=== PATIENT | male | born 1980 | race Caucasian/White ===

== ENCOUNTER 2019-08-12 08:58 | Day surgery (SDC) | payer OTHER ==
[~2019-08-12 08:58] MED LIST: Dexamethasone 4 MG/ML 5 ML MDV ONE; HYDROmorphone 0.5 MG/0.5 ML Syringe ONE; Ketorolac 30 MG/ML SDV ONE; Lactated Ringers 0 ML ONE; Lactated Ringers 1,000 ML IV SCH; Lactated Ringers 1,000 ML ONE; Lidocaine 1% 6 ML ONE; Lidocaine 1%/Sod Bicarbonate in NS 8.4% 1 ML Syringe IDERM PRN; Midazolam 1 MG/ML 2 ML SDV ONE; Ondansetron 4 MG/2 ML SDV ONE; Phenylephrine/Normal Saline 100 MCG/ML 10 ML Syringe ONE; Propofol 200 MG/20 ML SDV ONE; Sodium Chloride 0.9% 10 ML Syringe FLUSH PRN; ceFAZolin 1 GM Vial ONE; fentaNYL 250 MCG/5 ML SDV ONE
[2019-08-12] MEDS ORDERED: Bupivacaine 0.25% 10 ML SDV ONE (09:03)
--- NOTE | 2019-08-12 09:55 | PCM.PREANE ---
Preanesthetic Assessment - Procedure Proposed Procedure: right knee prepatellar bursectomy - Anesthesia/Transfusion/Family Hx Anesthesia History: Prior Anesthesia Without Reaction Family History of Anesthesia Reaction: No Transfusion History: No Prior Transfusion(s) - Review of Systems General: No Symptoms Pulmonary: No Symptoms Cardiovascular: No Symptoms Gastrointestinal: Nausea (empty stomach) Neurological: No Symptoms Other: Reports: None - Physical Assessment NPO Status Date: 08/11/19 NPO Status Time: 20:00 Vital Signs: Last Vital Signs Temp 37.0 C 08/12/19 09:05 Pulse 84 08/12/19 09:05 Resp 16 08/12/19 09:05 BP 121/86 08/12/19 09:05 Pulse Ox 96 08/12/19 09:05 Height: 1.83 m Weight: 108.862 kg ASA Class: 2 Mental Status: Alert & Oriented x3 Airway Class: Mallampati = 1 Dentition: Reports: Normal Dentition Thyro-Mental Finger Breadths: 3 Mouth Opening Finger Breadths: 3 ROM/Head Extension: Full Lungs: Clear to Auscultation, Normal Respiratory Effort Cardiovascular: Regular Rate, Regular Rhythm - Lab Values: Laboratory Last Values MRSA (PCR) Negative 08/09/19 11:29 - Allergies Allergies/Adverse Reactions: Allergies Allergy/AdvReac Type Severity Reaction Status Date / Time No Known Allergies Allergy Verified 08/11/19 12:45 - Blood Blood Available: No Product(s) Available: None - Anesthesia Plan Pre-Op Medication Ordered: None - Acknowledgements Anesthesia Type Planned: General Anesthesia Pt an Appropriate Candidate for the Planned Anesthesia: Yes Alternatives and Risks of Anesthesia Discussed w Pt/Guardian: Yes Pt/Guardian Understands and Agrees with Anesthesia Plan: Yes PreAnesthesia Questionnaire HEENT History: Reports: Allergic Rhinitis Cardiovascular History: Reports: None Respiratory History: Reports: None Gastrointestinal History: Reports: None, GERD Genitourinary History: Reports: None 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 Musculoskeletal History: Reports: Back Pain, Chronic, Other (See Below) Other Musculoskeletal History: RIGHT KNEE BURSITIS, CHONDROMALACHIA, LEFT KNEE ARTHROSCOPY Neurological History: Reports: None Psychiatric History: Reports: None Endocrine/Metabolic History: Reports: None Hematologic History: Reports: None Immunologic History: Reports: None Oncologic (Cancer) History: Reports: None Dermatologic History: Reports: Cellulitis - Past Surgical History Head Surgeries/Procedures: Reports: None HEENT Surgical History: Reports: None Cardiovascular Surgical History: Reports: None Respiratory Surgical History: Reports: None GI Surgical History: Reports: None Female Surgical History: Reports: None Male Surgical History: Reports: None Endocrine Surgical History: Reports: None Neurological Surgical History: Reports: None Musculoskeletal Surgical History: Reports: Arthroscopic Knee Oncologic Surgical History: Reports: None Dermatological Surgical History: Reports: None - SUBSTANCE USE Smoking Status *Q: Never Smoker Tobacco Use Within Last Twelve Months: No Second Hand Smoke Exposure: No Days Per Week of Alcohol Use: 0 Number of Drinks Per Day: 0 Total Drinks Per Week: 0 Recreational Drug Use History: No - HOME MEDS Home Medications: Home Meds Doxycycline Hyclate 100 mg PO BID 08/11/19 [History] Acetaminophen [Tylenol Extra Strength] 1 tab PO ASDIRECTED PRN 08/12/19 [History ] Acetaminophen/HYDROcodone [[place] 325-5 MG] 1 tab PO ASDIRECTED PRN 08/12/19 [ History] Aspirin 325 mg PO BID #84 tab 08/12/19 [Rx] Hydrocodone/Acetaminophen [[place] 5-325 Tablet] 1 - 2 tab PO Q6H PRN #30 tablet 08/12/19 [Rx] - CURRENT (IN HOUSE) MEDS Current Meds: Current Medications Lactated Ringer's (Ringers, Lactated) 1,000 mls @ 125 mls/hr IV ASDIRECTED MADHU Stop: 08/12/19 23:00 Last Admin: 08/12/19 09:20 Dose: 125 mls/hr Influenza Virus Vaccine (Pharmacy To Dose - Influenza Vaccine) 0 each IM ONETIME MADHU Stop: 08/12/19 18:00 Influenza Virus Vaccine (Fluzone Quad [id number] Syringe) 60 mcg IM .ONCE ONE Stop: 08/12/19 10:01 Lidocaine/Sodium Bicarbonate (Buffered Lidocaine 1% In Ns 8.4%) 0.25 ml IDERM ONETIME PRN PRN Reason: Prior to IV Start Stop: 08/12/19 18:00 Last Admin: 08/12/19 09:20 Dose: 0.25 ml Sodium Chloride (Saline Flush) 10 ml FLUSH ASDIRECTED PRN PRN Reason: Keep Vein Open Stop: 08/12/19 18:00 Discontinued Medications Bupivacaine HCl (Sensorcaine-Mpf 0.25%) Confirm Administered Dose 20 ml .ROUTE .STK-MED ONE Stop: 08/12/19 09:04 Cefazolin Sodium (Ancef) Confirm Administered Dose 2 gm .ROUTE .STK-MED ONE Stop: 08/12/19 08:47 Dexamethasone (Dexamethasone) Confirm Administered Dose 20 mg .ROUTE .STK-MED ONE Stop: 08/12/19 08:47 Fentanyl (Sublimaze) Confirm Administered Dose 250 mcg .ROUTE .STK-MED ONE Stop: 08/12/19 08:49 Hydromorphone HCl (Dilaudid) Confirm Administered Dose 0.5 mg .ROUTE .STK-MED ONE Stop: 08/12/19 08:47 Lactated Ringer's (Ringers, Lactated) Confirm Administered Dose 1,000 mls @ as directed .ROUTE .STK-MED ONE Stop: 08/12/19 08:45 Lidocaine HCl (Xylocaine-Mpf 1%) Confirm Administered Dose 6 mls @ as directed .ROUTE .STK-MED ONE Stop: 08/12/19 08:47 Lactated Ringer's (Ringers, Lactated) Confirm Administered Dose 1,000 mls @ as directed .ROUTE .STK-MED ONE Stop: 08/12/19 08:47 Ketorolac Tromethamine (Toradol) Confirm Administered Dose 30 mg .ROUTE .STK- MED ONE Stop: 08/12/19 08:47 Midazolam HCl (Versed 1 Mg/Ml) Confirm Administered Dose 2 mg .ROUTE .STK-MED ONE Stop: 08/12/19 08:48 Ondansetron HCl (Zofran) Confirm Administered Dose 4 mg .ROUTE .STK-MED ONE Stop: 08/12/19 08:47 Phenylephrine HCl (Phenylephrine In Ns 100 Mcg/Ml) Confirm Administered Dose 1 mg .ROUTE .STK-MED ONE Stop: 08/12/19 08:47 Propofol (Diprivan 20 Ml) Confirm Administered Dose 200 mg .ROUTE .STK-MED ONE Stop: 08/12/19 08:48
[2019-08-12] MEDS ORDERED: FLU Vacc QS2019-20(6MOS+)/PF 60 MCG/0.5 ML SYRINGE IM ONE (10:00)
[2019-08-12] MEDS ORDERED: Propofol 200 MG/20 ML SDV ONE (10:44)
[2019-08-12] MEDS ORDERED: fentaNYL 100 MCG/2 ML SDV IVPUSH PRN (10:59)
[2019-08-12] MEDS ORDERED: HYDROmorphone 0.5 MG/0.5 ML Syringe IVPUSH PRN (10:59)
[2019-08-12] MEDS ORDERED: Ondansetron 4 MG/2 ML SDV IVPUSH PRN (10:59)
[2019-08-12] MEDS ORDERED: ePHEDrine 50 MG/ML SDV IVPUSH PRN (10:59)
[2019-08-12] MEDS ORDERED: diphenhydrAMINE 50 MG/ML SDV IVPUSH PRN (10:59)
[2019-08-12] MEDS ORDERED: Phenylephrine 1 MG in Sodium Chloride 0.9% 10 ML IV SCH (11:00)
[2019-08-12] MEDS ORDERED: HYDROmorphone 0.5 MG/0.5 ML Syringe ONE ×2 (11:19→11:32)
--- NOTE | 2019-08-12 12:07 | PCM.POSTAN ---
POST ANESTHESIA ASSESSMENT - MENTAL STATUS Mental Status: Alert - VITAL SIGNS Vital Signs: Last Vital Signs Temp 98.4f 08/12/19 1200 Pulse 72 08/12/19 1200 Resp 12 08/12/19 1200 BP 137/88 08/12/19 1200 Pulse Ox 96 08/12/19 1200 - RESPIRATORY Respiratory Status: Respiratory Rate WNL, Airway Patent, O2 Saturation Stable, Supplemental Oxygen - CARDIOVASCULAR CV Status: Pulse Rate WNL, Blood Pressure Stable - GASTROINTESTINAL GI Status: No Symptoms - POST OP HYDRATION Hydration Status: Adequate & Stable
[2019-08-12] MEDS ORDERED: Acetaminophen/HYDROcodone 325-5 MG Tab PO PRN (13:01)
--- NOTE | 2019-08-12 13:01 | PCM48HPAN ---
Post Anesthesia Note - EVALUATION WITHIN 48HRS OF ANESTHETIC Vital Signs in Normal Range: Yes Patient Participated in Evaluation: Yes Respiratory Function Stable: Yes Airway Patent: Yes Cardiovascular Function Stable: Yes Hydration Status Stable: Yes Pain Control Satisfactory: Yes Nausea and Vomiting Control Satisfactory: Yes Mental Status Recovered: Yes Vital Signs: Last Vital Signs Temp 37.4 C 08/12/19 12:45 Pulse 77 08/12/19 12:45 Resp 14 08/12/19 12:45 BP 138/81 08/12/19 12:45 Pulse Ox 94 L 08/12/19 12:45
[2019-08-12] MEDS ORDERED: FLU Vacc QS2019-20(6MOS+)/PF 60 MCG/0.5 ML SYRINGE ONE (13:16)
--- NOTE | 2019-08-17 13:42 | PCM.OPNOTE ---
- General Post-Op/Procedure Note Date of Surgery/Procedure: 08/12/19 Operative Procedure(s): right knee prepatellar bursectomy with wound vac placement Pre Op Diagnosis: right knee septic prepatellar bursitis with ulceration Post-Op Diagnosis: Same Anesthesia Technique: General LMA, MAC Primary Surgeon: Richie Duarte Anesthesia Provider: Debora Villavicencio Literacy Tutor: Samantha Esqueda EBL in mLs: 30 Complications: None Condition: Good
--- NOTE | 2019-08-17 14:51 | OR ---
DATE OF OPERATION: 08/12/2019 SURGEON: Richie Duarte MD OPERATION PERFORMED: Right knee prepatellar bursitis with wound VAC placement. PREOPERATIVE DIAGNOSIS: Right knee perceptive prepatellar bursitis with ulceration. POSTOPERATIVE DIAGNOSIS: Right knee perceptive prepatellar bursitis with ulceration. ANESTHESIA: General LMA with local. ANESTHESIA PROVIDER: Debora Villavicencio CRNA ESTIMATED BLOOD LOSS: 30 mL. COMPLICATIONS: None. CONDITION: Stable. DESCRIPTION OF PROCEDURE: The patient was identified in the preop holding area. Proper site was marked and identified by the surgeon. The patient was taken back to the operating theater where after adequate anesthesia, the patient had a nonsterile tourniquet applied to the right lower extremity. His right lower extremity was then sterilely prepped and draped with Betadine secondary to the open ulceration. At this time, the right lower extremity was elevated and tourniquet was insufflated to 250 mmHg. The ulceration was then probed and was found to be full thickness all the way down to the prepatellar bursa. It measured roughly 3 cm x 3 cm with roughened edges and significant skin sloughing around it. At this time, this was debrided significantly back to good healthy tissue. At this time, a longitudinal incision was made roughly 4 cm over from this, on the medial side, and a prepatellar bursectomy was then carried out. There was noted to be a large amount of scarring in the prepatellar bursal region where it was hard to even tell good tissue from bad and where the fascia and the retinaculum was of the knee. I did debride a significant amount of prepatellar bursa and debulked it significantly and did not enter the knee joint. 4 L of normal saline were irrigated through this once this had been completely debrided back. At this time, it was decided secondary to the ulceration and wound VAC would need to be placed and a wound VAC was applied to the ulceration and to the incision under sterile technique. The wound VAC was then applied to constant continuous pressure. The patient tolerated the procedure well, and this was significantly more difficult than a normal prepatellar bursa secondary to rupturing and the patient having a large ulceration at this time, with a lot more skin debridement than normal as well as the prepatellar bursa debridement was significantly scarred. MMODAL /[id number]
--- NOTE | 2019-08-23 09:14 | OR ---
DATE OF OPERATION: 08/12/2019 SURGEON: Richie Duarte MD ADDENDUM: Please note that measurement of the open area for placement of the wound VAC was roughly 4 cm x 6 cm and a nondurable V.A.C.Via that was only used for 1 week was utilized. MMODAL /[id number]
== END 2019-08-12 14:07 | disposition home or self-care (01) ==
LOC: JD.SDS 08:58
PROVIDERS: ATTEND Orthopaedic Surgery
DX: M70.41 Prepatellar bursitis, right knee (principal); L98.499 Non-pressure chronic ulcer of skin of other sites with unspecified severity; K21.9 Gastro-esophageal reflux disease without esophagitis; Z91.018 Allergy to other foods; Z23 Encounter for immunization; Z79.1 Long term (current) use of non-steroidal anti-inflammatories (NSAID)
CPT/HCPCS: 15002; 27340; 87075; 87077; 87186; 87205; 87641; 90471; 90686; 97607; A9270; J0690; J1100; J1170; J1885; J2001; J2250; J2405; J2704; J3010; J3490; J7120; 01320; G0008; J2370

== ENCOUNTER 2019-11-25 08:53 | Day surgery (SDC) | payer OTHER ==
[~2019-11-25 08:53] MED LIST changes: -HYDROmorphone 0.5 MG/0.5 ML Syringe ONE; -Lactated Ringers 0 ML ONE; -Lidocaine 1% 6 ML ONE; -Phenylephrine/Normal Saline 100 MCG/ML 10 ML Syringe ONE; +fentaNYL 100 MCG/2 ML SDV ONE; -fentaNYL 250 MCG/5 ML SDV ONE
[2019-11-25] MEDS ORDERED: Bupivacaine 0.25% 10 ML SDV ONE (09:12)
--- NOTE | 2019-11-25 09:48 | PCM.PREANE ---
Preanesthetic Assessment - Procedure Proposed Procedure: Excision of Right Knee soft tissue mass - Anesthesia/Transfusion/Family Hx Anesthesia History: Prior Anesthesia Without Reaction Family History of Anesthesia Reaction: No Transfusion History: No Prior Transfusion(s) - Review of Systems General: No Symptoms Pulmonary: No Symptoms Cardiovascular: Palpitations (Related to excessive caffine use. ) Gastrointestinal: No Symptoms Neurological: No Symptoms Other: Reports: None - Physical Assessment NPO Status Date: 11/25/19 NPO Status Time: 08:00 (Sip H20) Vital Signs: 98.5F 16 121/67 56 97% Weight: 102.058 kg ASA Class: 1 Mental Status: Alert & Oriented x3 Airway Class: Mallampati = 2 Dentition: Reports: Normal Dentition Thyro-Mental Finger Breadths: 3 Mouth Opening Finger Breadths: 3 ROM/Head Extension: Full Lungs: Clear to Auscultation, Normal Respiratory Effort Cardiovascular: Regular Rate, Regular Rhythm - Allergies Allergies/Adverse Reactions: Allergies Allergy/AdvReac Type Severity Reaction Status Date / Time No Known Allergies Allergy Verified 11/24/19 15:01 - Acknowledgements Anesthesia Type Planned: MAC (Requested per Dr. 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 Musculoskeletal History: Reports: Back Pain, Chronic, Other (See Below) Other Musculoskeletal History: RIGHT KNEE BURSITIS, CHONDROMALACHIA, LEFT KNEE ARTHROSCOPY Neurological History: Reports: None Psychiatric History: Reports: None Endocrine/Metabolic History: Reports: None Hematologic History: Reports: None Immunologic History: Reports: None Oncologic (Cancer) History: Reports: None Dermatologic History: Reports: Cellulitis - Past Surgical History Head Surgeries/Procedures: Reports: None HEENT Surgical History: Reports: None Cardiovascular Surgical History: Reports: None Respiratory Surgical History: Reports: None GI Surgical History: Reports: None Female Surgical History: Reports: None Male Surgical History: Reports: None Endocrine Surgical History: Reports: None Neurological Surgical History: Reports: None Musculoskeletal Surgical History: Reports: Arthroscopic Knee Oncologic Surgical History: Reports: None Dermatological Surgical History: Reports: None - SUBSTANCE USE Smoking Status *Q: Never Smoker Recreational Drug Use History: No - HOME MEDS Home Medications: Home Meds Acetaminophen [Tylenol Extra Strength] 1,000 mg PO Q6H PRN 08/12/19 [History] - CURRENT (IN HOUSE) MEDS Current Meds: Current Medications Lactated Ringer's (Ringers, Lactated) 1,000 mls @ 125 mls/hr IV ASDIRECTED MADHU Stop: 11/25/19 23:00 Lidocaine/Sodium Bicarbonate (Buffered Lidocaine 1% In Ns 8.4%) 0.25 ml IDERM ONETIME PRN PRN Reason: Prior to IV Start Stop: 11/25/19 18:00 Sodium Chloride (Saline Flush) 10 ml FLUSH ASDIRECTED PRN PRN Reason: Keep Vein Open Stop: 11/25/19 18:00 Discontinued Medications Bupivacaine HCl (Sensorcaine-Mpf 0.25%) Confirm Administered Dose 20 ml .ROUTE .STK-MED ONE Stop: 11/25/19 09:13 Cefazolin Sodium (Ancef) Confirm Administered Dose 2 gm .ROUTE .STK-MED ONE Stop: 11/25/19 08:49 Dexamethasone (Dexamethasone) Confirm Administered Dose 20 mg .ROUTE .STK-MED ONE Stop: 11/25/19 08:50 Fentanyl (Sublimaze) Confirm Administered Dose 100 mcg .ROUTE .STK-MED ONE Stop: 11/25/19 08:49 Lactated Ringer's (Ringers, Lactated) Confirm Administered Dose 1,000 mls @ as directed .ROUTE .STK-MED ONE Stop: 11/25/19 08:49 Ketorolac Tromethamine (Toradol) Confirm Administered Dose 30 mg .ROUTE .STK- MED ONE Stop: 11/25/19 08:49 Midazolam HCl (Versed 1 Mg/Ml) Confirm Administered Dose 2 mg .ROUTE .STK-MED ONE Stop: 11/25/19 08:49 Ondansetron HCl (Zofran) Confirm Administered Dose 4 mg .ROUTE .STK-MED ONE Stop: 11/25/19 08:49 Propofol (Diprivan 20 Ml) Confirm Administered Dose 400 mg .ROUTE .STK-MED ONE Stop: 11/25/19 08:49
--- NOTE | 2019-11-25 10:58 | PCM48HPAN ---
Post Anesthesia Note - EVALUATION WITHIN 48HRS OF ANESTHETIC Vital Signs in Normal Range: Yes Patient Participated in Evaluation: Yes Respiratory Function Stable: Yes Airway Patent: Yes Cardiovascular Function Stable: Yes Hydration Status Stable: Yes Pain Control Satisfactory: Yes Nausea and Vomiting Control Satisfactory: Yes Mental Status Recovered: Yes Vital Signs: Last Vital Signs Temp 36.9 C 11/25/19 09:49 Pulse 56 L 11/25/19 09:49 Resp 16 11/25/19 09:49 BP 121/67 11/25/19 09:49 Pulse Ox 97 11/25/19 09:49
--- NOTE | 2019-11-26 12:57 | PCM.OPNOTE ---
- General Post-Op/Procedure Note Date of Surgery/Procedure: 11/25/19 Operative Procedure(s): excision of soft tissue mass right knee Pre Op Diagnosis: painful soft tissue mass right knee Post-Op Diagnosis: Same Anesthesia Technique: Local, MAC Primary Surgeon: Richie Duarte Anesthesia Provider: Charmaine Downey Veneer Taping Machine Offbearer: Michela Fatima EBL in mLs: 10 Complications: None Condition: Good
--- NOTE | 2019-12-01 12:19 | OR ---
DATE OF OPERATION: 11/25/2019 SURGEON: Richie Duarte MD OPERATION PERFORMED: Excision of soft tissue mass, right knee. PREOPERATIVE DIAGNOSIS: Painful soft tissue mass, right knee. POSTOPERATIVE DIAGNOSIS: Painful soft tissue mass, right knee. ANESTHESIA: Local MAC. ANESTHESIA PROVIDER: Cristina Salgado. TECHNICIAN: Michela Fatima LPN. ESTIMATED BLOOD LOSS: 10 mL. COMPLICATIONS: None. CONDITION: Stable. DESCRIPTION OF PROCEDURE: The patient was identified in the preoperative holding area. Proper site was marked and identified by the surgeon. The patient was taken back to the operative theater, where after adequate anesthesia, the patient's right lower extremity had a nonsterile tourniquet applied and then a sterile prep and drape in the usual sterile fashion. OR-wide time-out was performed. The patient received 2 g IV Ancef. At this time, it was decided not to use the tourniquet. Incision was made utilizing the previous superior portion of the incision only, after 1% lidocaine and 0.25% Marcaine were used to anesthetize the region. At this time, this was taken down. The patient was noted to have a roughly quarter- size piece of scar tissue along with a septated bursa that was at the superior portion of the incision that was freely mobile. This was then excised out roughly 2.5 cm x 2.5 cm making sure that there were no other loose or floating fragments. Once I completely removed the mass, adequate saline was irrigated through the wound. 3-0 Vicryl was used subcutaneously and constance were used for the skin. The patient tolerated the procedure well and was sent to PACU in stable condition with a sterile soft dressing. MMODAL /[id number]
== END 2019-11-25 11:47 | disposition home or self-care (01) ==
LOC: JD.SDS 08:53
PROVIDERS: ATTEND Orthopaedic Surgery
DX: R22.41 Localized swelling, mass and lump, right lower limb (principal); K21.9 Gastro-esophageal reflux disease without esophagitis; J30.2 Other seasonal allergic rhinitis; Z91.011 Allergy to milk products
CPT/HCPCS: 27327; J0690; J1100; J1885; J2250; J2405; J2704; J3010; J3490; J7120; 00400

== ENCOUNTER 2021-04-29 23:38 | Day surgery (SDC) | payer BC, OTHER ==
[2021-04-29] MEDS ORDERED: Piperacillin/Tazobactam 4.5 GM in Sodium Chloride 0.9% 100 ML IV ONE (23:48)
--- NOTE | 2021-04-30 00:05 | EDM.PDOC ---
ED HPI GENERAL MEDICAL PROBLEM - General Chief Complaint: Abdominal Pain Stated Complaint: [facility] Time Seen by Provider: 04/29/21 23:55 - History of Present Illness INITIAL COMMENTS - FREE TEXT/NARRATIVE: 40-year-old male transferred up there from [place] anticipating appendectomy. [place] lower abdominal discomfort 2 nights ago he has a history of ulcerative colitis. Earlier this year he started Remicade for this. He states the pain he is having now is much different than he gets with his UC he had symptoms from his first 2 infusions of Remicade mostly joint pain he has not had any symptoms after his third infusion patient has no coronary artery disease no hypertension no hyperlipidemia no history of diabetes Right Lower Abdominal Pain Score (Numeric/FACES): 3 - Related Data Allergies Allergy/AdvReac Type Severity Reaction Status Date / Time No Known Allergies Allergy Verified 04/29/21 23:43 Home Meds: Home Meds Acetaminophen [Tylenol Extra Strength] 1,000 mg PO Q6H PRN 08/12/19 [History] InFLIXimab [Remicade] 100 mg IV ASDIRECTED 04/29/21 [History] Past Medical History HEENT History: Reports: Allergic Rhinitis Cardiovascular History: Reports: Other (See Below) Other Cardiovascular History: palpitations Respiratory History: Reports: None Gastrointestinal History: Reports: GERD, Other (See Below) Other Gastrointestinal History: ucerative colitis Genitourinary History: Reports: None 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 Musculoskeletal History: Reports: Back Pain, Chronic, Other (See Below) Other Musculoskeletal History: RIGHT KNEE BURSITIS, CHONDROMALACHIA, LEFT KNEE ARTHROSCOPY Neurological History: Reports: None Psychiatric History: Reports: None Endocrine/Metabolic History: Reports: None Hematologic History: Reports: None Immunologic History: Reports: None Oncologic (Cancer) History: Reports: None Dermatologic History: Reports: Cellulitis - Past Surgical History Head Surgeries/Procedures: Reports: None HEENT Surgical History: Reports: None Cardiovascular Surgical History: Reports: None Respiratory Surgical History: Reports: None GI Surgical History: Reports: None Male Surgical History: Reports: None Endocrine Surgical History: Reports: None Neurological Surgical History: Reports: None Musculoskeletal Surgical History: Reports: Arthroscopic Knee Oncologic Surgical History: Reports: None Dermatological Surgical History: Reports: None Social & Family History - Tobacco Use Tobacco Use Status *Q: Never Tobacco User - Caffeine Use Caffeine Use: Reports: None - Recreational Drug Use Recreational Drug Use: No ED ROS GENERAL - Review of Systems Review Of Systems: See Below Constitutional: Reports: No Symptoms HEENT: Reports: No Symptoms, Vertigo Cardiovascular: Reports: No Symptoms Endocrine: Reports: No Symptoms GI/Abdominal: Reports: Other (See HPI) : Reports: No Symptoms ED EXAM, GENERAL - Physical Exam Exam: See Below Exam Limited By: No Limitations General Appearance: Alert, No Apparent Distress Head: Atraumatic, Normocephalic Neck: Normal Inspection, Supple, Non-Tender, Full Range of Motion Respiratory/Chest: No Respiratory Distress, Lungs Clear, Normal Breath Sounds Cardiovascular: Regular Rate, Rhythm, No Edema, No Murmur GI/Abdominal: Normal Bowel Sounds, Soft, Tender (He has tenderness periumbilically and worse in the right lower quadrant he has mild rebound tenderness) Back Exam: Normal Inspection. No: CVA Tenderness (L), CVA Tenderness (R) Course - Vital Signs Last Recorded V/S: Last Vital Signs Temp 37.1 C 04/29/21 23:45 Pulse 95 04/29/21 23:45 Resp 20 04/29/21 23:45 BP 102/63 04/29/21 23:45 Pulse Ox 93 L 04/29/21 23:45 - Orders/Labs/Meds Orders: Active Orders 24 hr Category Date Time Status CORONAVIRUS COVID-19 KIARA [MOLEC] Stat Lab 04/29/21 23:49 Received Piperacillin/Tazobactam [Piperacil-Tazobact] 4.5 gm Med 04/29/21 23:48 Active Sodium Chloride 0.9% [Normal Saline] 100 ml IV ONETIME Medication Orders Piperacillin Sod/Tazobactam (Sod 4.5 gm/ Sodium Chloride) 100 mls @ 200 mls/hr IV ONETIME ONE Stop: 04/30/21 00:17 Meds: Medications Generic Name Dose Route Start Last Admin Trade Name Freq PRN Reason Stop Dose Admin Piperacillin Sod/Tazobactam 100 mls @ 200 mls/hr 04/29/21 23:48 Sod 4.5 gm/ Sodium Chloride IV 04/30/21 00:17 ONETIME ONE - Re-Assessments/Exams Free Text/Narrative Re-Assessment/Exam: 04/30/21 00:[address] Gallo anticipating taking the patient to surgery at 6 AM would like the crew called at 5 and would like for us to start 4.5 g of Zosyn now. I will also start D5 LR at 100 cc an hour and will treat nausea and pain as needed to the night. Departure - Departure Time of Disposition: 00:18 Disposition: DC/Tfer to [facility] Clinical Impression: Acute appendicitis - Discharge Information Referrals: Elio Diego, [facility] [Primary Care Provider] - Sepsis Event Note (ED) - Evaluation Sepsis Screening Result: No Definite Risk - Focused Exam Vital Signs: Vital Signs Temp Pulse Resp BP Pulse Ox 04/29/21 23:45 37.1 C 95 20 102/63 93 L
[2021-04-30] MEDS ORDERED: Dextrose 5%-Lactated Ringers 1,000 ML IV SCH (00:15)
[2021-04-30] MEDS ORDERED: HYDROmorphone 0.5 MG/0.5 ML Syringe IVPUSH ONE ×2 (04:02→05:26)
[2021-04-30] MEDS ORDERED: Bupivacaine 0.5%/EPINEPHrine 1:200,000 50 ML MDV ONE (05:38)
[2021-04-30] MEDS ORDERED: Lidocaine 1% with EPINEPHrine 1:100,000 10 ML MDV ONE (05:38)
[2021-04-30] MEDS ORDERED: Rocuronium 50 MG/5 ML Vial ONE (05:44)
[2021-04-30] MEDS ORDERED: Ondansetron 4 MG/2 ML SDV ONE (05:44)
[2021-04-30] MEDS ORDERED: Propofol 200 MG/20 ML SDV ONE (05:44)
--- NOTE | 2021-04-30 05:44 | PCM.HP.2 ---
H&P History of Present Illness - General Date of Service: 04/30/21 Admit Problem/Dx: Admission Diagnosis/Problem Admission Diagnosis/Problem Appendicitis Source of Information: Patient, Provider - History of Present Illness Initial Comments - Free Text/Narative: The patient is a 40-year-old male who presented to the emergency department after evaluation at an outside facility for his abdominal pain. He reported having left upper quadrant pain that started 2 days ago in the left upper quadrant and is now localized to the right lower quadrant. He initially had vomiting. At the outside facility he had a CT scan showing a dilated appendix consistent with acute appendicitis. He was transferred to [facility] for further care. He denies any fever or chills. His last bowel movement was 2 days ago. He denies any diarrhea. Right Lower Abdominal Pain Score (Numeric/FACES): 3 - Related Data Allergies/Adverse Reactions: Allergies Allergy/AdvReac Type Severity Reaction Status Date / Time No Known Allergies Allergy Verified 04/29/21 23:43 Home Medications: Home Meds Acetaminophen [Tylenol Extra Strength] 1,000 mg PO Q6H PRN 08/12/19 [History] InFLIXimab [Remicade] 100 mg IV ASDIRECTED 04/29/21 [History] Past Medical History HEENT History: Reports: Allergic Rhinitis Cardiovascular History: Reports: Other (See Below) Other Cardiovascular History: palpitations Respiratory History: Reports: None Gastrointestinal History: Reports: GERD, Hiatal Hernia, Inflammatory Bowel Disease (ulcerative colitis) Genitourinary History: Reports: None 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: Reports: 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 Musculoskeletal History: Reports: Back Pain, Chronic, Other (See Below) Other Musculoskeletal History: RIGHT KNEE BURSITIS, CHONDROMALACHIA, LEFT KNEE ARTHROSCOPY Neurological History: Reports: None Psychiatric History: Reports: None Endocrine/Metabolic History: Reports: None Hematologic History: Reports: None Immunologic History: Reports: None Oncologic (Cancer) History: Reports: None Dermatologic History: Reports: Cellulitis - Past Surgical History Head Surgeries/Procedures: Reports: None HEENT Surgical History: Reports: None Cardiovascular Surgical History: Reports: None Respiratory Surgical History: Reports: None GI Surgical History: Reports: None Male Surgical History: Reports: None Endocrine Surgical History: Reports: None Neurological Surgical History: Reports: None Musculoskeletal Surgical History: Reports: Arthroscopic Knee Oncologic Surgical History: Reports: None Dermatological Surgical History: Reports: None Social & Family History - Family History GI: Reports: Celiac Disease - Tobacco Use Tobacco Use Status *Q: Never Tobacco User - Caffeine Use Caffeine Use: Reports: None - Recreational Drug Use Recreational Drug Use: No H&P Review of Systems - Review of Systems: Review Of Systems: See Below General: Reports: No Symptoms HEENT: Reports: No Symptoms Pulmonary: Reports: No Symptoms Cardiovascular: Denies: Chest Pain Gastrointestinal: Reports: Abdominal Pain. Denies: Diarrhea, Hematochezia, Me wisam Genitourinary: Reports: No Symptoms Musculoskeletal: Reports: Back Pain Skin: Reports: No Symptoms Neurological: Reports: No Symptoms Hematologic/Lymphatic: Reports: No Symptoms Exam - Exam Exam: See Below - Vital Signs Vital Signs: Last Vital Signs Temp 37.1 C 04/29/21 23:45 Pulse 85 04/30/21 05:00 Resp 16 04/30/21 05:00 BP 113/85 04/30/21 05:00 Pulse Ox 99 04/30/21 05:00 Weight: 88.451 kg - Exam Quality Assessment: No: Supplemental Oxygen General: Alert, Oriented HEENT: Conjunctiva Clear, EOMI Neck: Supple Lungs: Clear to Auscultation, Normal Respiratory Effort Cardiovascular: Regular Rate, Regular Rhythm GI/Abdominal Exam: Soft, Tender (in RLQ with Rovsing's sign) Extremities: Normal Inspection, No Pedal Edema Peripheral Pulses: 2+: Dorsalis Pedis (L), Dorsalis Pedis (R) Skin: Warm, Dry, Intact Neurological: Cranial Nerves Intact Neuro Extensive - Mental Status: Normal Mood/Affect - Patient Data Lab Results Last 24 hrs: Laboratory Results - last 24 hr 04/29/21 Range/Units 23:49 SARS-CoV-2 RNA (KIARA) Negative (NEGATIVE) Sepsis Event Note - Evaluation Sepsis Screening Result: No Definite Risk - Focused Exam Vital Signs: Vital Signs Temp Pulse Resp BP Pulse Ox 04/30/21 05:00 85 16 113/85 99 04/29/21 23:45 37.1 C 95 20 102/63 93 L *Q Meaningful Use (ADM) - VTE Risk Assess *Q Each Risk Factor Represents 1 Point: Minor Surgery Planned Total Score 1 Point Risk Factors: 1 - Problem List (1) Acute appendicitis SNOMED Code(s): 36867396 ICD Code: K35.80 - UNSPECIFIED ACUTE APPENDICITIS Status: Acute Current Visit: Yes Qualifiers: Acute appendicitis type: with localized peritonitis Appendicitis gangrene presence: without gangrene Appendicitis perforation presence: without perforation Appendicitis abscess presence: without abscess Qualified Code(s): K35.30 - Acute appendicitis with localized peritonitis, without perforation or gangrene Problem List Initiated/Reviewed/Updated: Yes Orders Last 24hrs: Active Orders 24 hr Category Date Time Status Admission Status [Patient Status] [ADT] Routine ADT 04/30/21 05:11 Active Dextrose 5%-Lactated Ringers 1,000 ml Med 04/30/21 00:15 Active IV ASDIRECTED Schedule Procedure [COMM] Routine Oth 04/30/21 06:00 Ordered Schedule Procedure [COMM] Stat Oth 04/30/21 05:12 Ordered Medication Orders Dextrose/Lactated Ringer's (Dextrose 5%-Lactated Ringers) 1,000 mls @ 100 mls/hr IV ASDIRECTED [facility] Last Admin: 04/30/21 00:39 Dose: 100 mls/hr Documented by: JONNY Assessment/Plan Comment:: 40 y/o gentleman with acute appendicitis -Plan for laparoscopic appendectomy, possible open. Discussed risks of infection, bleeding, and possible staple line failure. Discussed increased risk due to his use of Remicade. His written consent was obtained -IV Zosyn given in ED, will redose Ancef at time of surgical start -N.p.o. with IV fluid resuscitation . Will assess need for inpatient stay based on intraoperative findings. Vira Salguero MD General Surgery - Mortality Measure Prognosis:: Good
[2021-04-30] MEDS ORDERED: Midazolam 1 MG/ML 2 ML SDV ONE (05:45)
[2021-04-30] MEDS ORDERED: fentaNYL 250 MCG/5 ML SDV ONE (05:45)
--- NOTE | 2021-04-30 06:05 | PCM.PREANE ---
Preanesthetic Assessment - Procedure Proposed Procedure: lap appy - Anesthesia/Transfusion/Family Hx Anesthesia History: Prior Anesthesia Without Reaction Family History of Anesthesia Reaction: No Transfusion History: No Prior Transfusion(s) - Review of Systems General: Fatigue, Malaise Pulmonary: No Symptoms Cardiovascular: No Symptoms Gastrointestinal: Abdominal Pain (RLQ) Neurological: No Symptoms Other: Reports: None - Physical Assessment NPO Status Date: 04/30/21 NPO Status Time: 00:00 Vital Signs: Last Vital Signs Temp 37.1 C 04/29/21 23:45 Pulse 85 04/30/21 05:00 Resp 16 04/30/21 05:00 BP 113/85 04/30/21 05:00 Pulse Ox 99 04/30/21 05:00 Height: 15.24 cm Weight: 88.451 kg ASA Class: 2 Mental Status: Alert & Oriented x3 Airway Class: Mallampati = 1 Dentition: Reports: Normal Dentition Thyro-Mental Finger Breadths: 3 Mouth Opening Finger Breadths: 3 ROM/Head Extension: Full Lungs: Clear to Auscultation, Normal Respiratory Effort Cardiovascular: Regular Rate, Regular Rhythm - Lab Values: Laboratory Last Values SARS-CoV-2 RNA (KIARA) Negative (NEGATIVE) 04/29/21 23:49 - Allergies Allergies/Adverse Reactions: Allergies Allergy/AdvReac Type Severity Reaction Status Date / Time No Known Allergies Allergy Verified 04/29/21 23:43 - Blood Blood Available: No Product(s) Available: None - Anesthesia Plan Pre-Op Medication Ordered: None - Acknowledgements Anesthesia Type Planned: General Anesthesia Pt an Appropriate Candidate for the Planned Anesthesia: Yes Alternatives and Risks of Anesthesia Discussed w Pt/Guardian: Yes Pt/Guardian Understands and Agrees with Anesthesia Plan: Yes PreAnesthesia Questionnaire HEENT History: Reports: Allergic Rhinitis Cardiovascular History: Reports: Other (See Below) Other Cardiovascular History: palpitations Respiratory History: Reports: None Gastrointestinal History: Reports: GERD, Other (See Below) Other Gastrointestinal History: ucerative colitis Genitourinary History: Reports: None 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 History: Reports: 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 Musculoskeletal History: Reports: Back Pain, Chronic, Other (See Below) Other Musculoskeletal History: RIGHT KNEE BURSITIS, CHONDROMALACHIA, LEFT KNEE ARTHROSCOPY Neurological History: Reports: None Psychiatric History: Reports: None Endocrine/Metabolic History: Reports: None Hematologic History: Reports: None Immunologic History: Reports: None Oncologic (Cancer) History: Reports: None Dermatologic History: Reports: Cellulitis - Past Surgical History Head Surgeries/Procedures: Reports: None HEENT Surgical History: Reports: None Cardiovascular Surgical History: Reports: None Respiratory Surgical History: Reports: None GI Surgical History: Reports: None Male Surgical History: Reports: None Endocrine Surgical History: Reports: None Neurological Surgical History: Reports: None Musculoskeletal Surgical History: Reports: Arthroscopic Knee Oncologic Surgical History: Reports: None Dermatological Surgical History: Reports: None - SUBSTANCE USE Tobacco Use Status *Q: Never Tobacco User Tobacco Use Within Last Twelve Months: No Second Hand Smoke Exposure: No Days Per Week of Alcohol Use: 0 Number of Drinks Per Day: 0 Total Drinks Per Week: 0 Recreational Drug Use History: No - HOME MEDS Home Medications: Home Meds Acetaminophen [Tylenol Extra Strength] 1,000 mg PO Q6H PRN 08/12/19 [History] InFLIXimab [Remicade] 100 mg IV ASDIRECTED 04/29/21 [History] - CURRENT (IN HOUSE) MEDS Current Meds: Current Medications Dextrose/Lactated Ringer's (Dextrose 5%-Lactated Ringers) 1,000 mls @ 100 mls/hr IV ASDIRECTED [facility] Last Admin: 04/30/21 00:39 Dose: 100 mls/hr Documented by: Discontinued Medications Bupivacaine HCl/Epinephrine Bitart (Bupivacaine 0.5%/Epinephrine 1:200,000 50 Ml Mdv) Confirm Administered Dose 50 ml .ROUTE .STK-MED ONE Stop: 04/30/21 05:39 Fentanyl (Fentanyl 250 Mcg/5 Ml Sdv) Confirm Administered Dose 250 mcg .ROUTE .STK-MED ONE Stop: 04/30/21 05:46 Hydromorphone HCl (Hydromorphone 0.5 Mg/0.5 Ml Syringe) 0.5 mg IVPUSH ONETIME ONE Stop: 04/30/21 04:03 Last Admin: 04/30/21 04:08 Dose: 0.5 mg Documented by: Hydromorphone HCl (Hydromorphone 0.5 Mg/0.5 Ml Syringe) 0.5 mg IVPUSH ONETIME ONE Stop: 04/30/21 05:27 Last Admin: 04/30/21 05:37 Dose: 0.5 mg Documented by: Piperacillin Sod/Tazobactam (Sod 4.5 gm/ Sodium Chloride) 100 mls @ 200 mls/hr IV ONETIME ONE Stop: 04/30/21 00:17 Last Admin: 04/30/21 00:02 Dose: 200 mls/hr Documented by: Lidocaine/Epinephrine (Lidocaine 1% With Epinephrine 1:100,000 10 Ml Mdv) Confirm Administered Dose 30 ml .ROUTE .STK-MED ONE Stop: 04/30/21 05:39 Midazolam HCl (Midazolam 1 Mg/Ml 2 Ml Sdv) Confirm Administered Dose 2 mg .ROUTE .STK-MED ONE Stop: 04/30/21 05:46 Ondansetron HCl (Ondansetron 4 Mg/2 Ml Sdv) Confirm Administered Dose 4 mg .ROUTE .STK-MED ONE Stop: 04/30/21 05:45 Propofol (Propofol 200 Mg/20 Ml Sdv) Confirm Administered Dose 200 mg .ROUTE .STK-MED ONE Stop: 04/30/21 05:45 Rocuronium [place] (Rocuronium 50 Mg/5 Ml Vial) Confirm Administered Dose 50 mg .ROUTE .STK-MED ONE Stop: 04/30/21 05:45
[2021-04-30] MEDS ORDERED: ceFAZolin 1 GM Vial ONE (06:32)
[2021-04-30] MEDS ORDERED: Lactated Ringers 1,000 ML ONE (07:03)
[2021-04-30] MEDS ORDERED: Ketorolac 30 MG/ML SDV ONE (07:09)
[2021-04-30] MEDS ORDERED: fentaNYL 100 MCG/2 ML SDV IVPUSH PRN (07:36)
[2021-04-30] MEDS ORDERED: Lactated Ringers 1,000 ML IV ONE (09:21)
--- NOTE | 2021-04-30 11:05 | PCM48HPAN ---
Post Anesthesia Note - EVALUATION WITHIN 48HRS OF ANESTHETIC Vital Signs in Normal Range: Yes Patient Participated in Evaluation: Yes Respiratory Function Stable: Yes Airway Patent: Yes Cardiovascular Function Stable: Yes Hydration Status Stable: Yes Pain Control Satisfactory: Yes Nausea and Vomiting Control Satisfactory: Yes Mental Status Recovered: Yes Vital Signs: Last Vital Signs Temp 98.9 F 04/30/21 10:30 Pulse 72 04/30/21 10:30 Resp 14 04/30/21 10:30 BP 101/63 04/30/21 10:30 Pulse Ox 97 04/30/21 10:30
--- NOTE | 2021-05-02 09:28 | PCM.OPNOTE ---
- General Post-Op/Procedure Note Date of Surgery/Procedure: 04/30/21 Operative Procedure(s): laparoscopic appendectomy Findings: acute appendicitis Pre Op Diagnosis: acute appendicitis Post-Op Diagnosis: same Anesthesia Technique: General ET Tube, Local Primary Surgeon: Vira Salguero Anesthesia Provider: Jaron Hu Pathology: appendix Output, Urine Amount: 0 EBL in mLs: 5 Complications: none apparent Condition: Good
--- NOTE | 2021-05-02 09:29 | PCM.PRNOTE ---
- Free Text/Narrative Note: Operative Report Date of surgery: April 30, 2020 Preoperative diagnosis: acute appendicitis. Postoperative diagnosis: same Procedure performed: laparoscopic appendectomy Surgeon: Dr. Vira Salguero Anesthesia: General Pm Technician: Jaron Hu CRNA Estimated blood loss [5 mL] IV fluids: See anesthesia record Urine output: 0 Drains and lines: None Findings: acute appendicitis Pathology: Appendix Indications for procedure: The patient is a 40-year-old male presented with findings of acute appendicitis as visualized on CT of his abdomen and pelvis. He was consented for laparoscopic appendectomy, possible open. We discussed risks of bleeding infection and staple line failure. His written consent was obtained Description of procedure: The patient was taken back to the operating room and placed in supine position on the operating table. SCD boots were in place and functional prior to the start of the procedure. Preoperative antibiotics were administered according to SCIP guidelines. The patient had successful induction of general anesthesia and was intubated without difficulty. Pt was then prepped and draped in standard surgical fashion and a timeout was performed. We began by making a 15 mm incision in the infraumbilical skin and deepened down to level of the fascia which was then grasped and incised sharply. We entered the peritoneum and then placed stay sutures of 0 Vicryl on the fascial edges. A 12 mm Syed port was then placed into the umbilicus and the balloon was inflated. The abdomen was insufflated to 15 mmHg a 5 mm camera was inserted. There was no evidence of any injury created from entry into the abdomen. A TA P block was performed using mixed 1% lidocaine with epinephrine and 0.5% bupivacaine with epinephrine . We then proceeded to place a 5 mm port under direct visualization in the suprapubic midline and an additional 5mm port in the left lower quadrant. The patient was then positioned in Trendelenburg with right side elevated and we proceeded to mobilize the appendix. The appendix was adherent to the right lateral abdominal wall. There was a murky fluid in the abdomen, which was removed with a Ray-Maribel. The appendix was then grasped and with blunt dissection was brought into the surgical field. The mesoappendix dissected from the appendix. The appendix was then taken with a tissue staple load. The mesoappendix was then taken with a LigaSure as well as some adhesions to the lateral abdominal wall. The specimen was in place in the Endo Catch bag. There was no active bleeding at the end of this case. The abdomen was then desufflated and the umbilical fascia closed with 0 Vicryl sutures and the stay sutures were tied, effectively closing the umbilical port site. The skin was then reapproximated at all port sites using a 4-0 Monocryl subcutaneous stitch and covered with Dermabond surgical glue. The patient tolerated the procedure. He was extubated and transported to the PACU in stable condition. All sponge and needle counts were correct. Vira Salguero MD General Surgery
== END 2021-04-30 10:51 | disposition home or self-care (01) ==
LOC: JD.ED 23:38 → JD.SDS 04-30 05:11
PROVIDERS: ATTEND Surgery
DX: K35.80 Unspecified acute appendicitis (principal); K21.9 Gastro-esophageal reflux disease without esophagitis; Z98.890 Other specified postprocedural states; Z79.899 Other long term (current) drug therapy; Z20.822 Contact with and (suspected) exposure to COVID-19
CPT/HCPCS: 44970; 87635; J0690; J1170; J1885; J2250; J2405; J2543; J2704; J3010; J3490; J7120; J7121; 00840; 96365; 96375; 96376; 99284; 99285-25; U0002